=== PATIENT | female | born 1935 | race Caucasian/White ===

== ENCOUNTER 2021-03-12 10:44 | Emergency (ER) | payer MEDICARE, BC ==
[2021-03-12] MEDS ORDERED: Sodium Chloride 0.9% 1,000 ML IV STA (11:12)
[2021-03-12] MEDS ORDERED: Sodium Chloride 0.9% 1,000 ML IV ONE (11:12)
[2021-03-12] MEDS ORDERED: Ondansetron 4 MG/2 ML SDV IVPUSH ONE (11:12)
--- NOTE | 2021-03-12 11:46 | EDM.PDOC ---
ED HPI GENERAL MEDICAL PROBLEM - General Chief Complaint: General Stated Complaint: MARTIN AMB Time Seen by Provider: 03/12/21 10:59 Source of Information: Reports: Patient, EMS History Limitations: Reports: No Limitations - History of Present Illness INITIAL COMMENTS - FREE TEXT/NARRATIVE: The patient presents by [facility] for syncope. She has a history of uterine cancer post surgery on chemo. She had chemo on Saturday. Her oncologist is Dr Ramirez. She has been having diarrhea and nausea. She has been having some dry heaves and nothing coming up. She has no fever, chills, cough, chest pain, shortness of breath or abdominal pain. She got up to use the phone this morning and the next thing she knows she is on the floor. She did not hit her had and she had no LOC. She has no headache or chest pain. She has been getting diarrhea from the chemo lately. She does not have much of an appetite. Onset: Sudden Duration: Minutes: Severity: Moderate Improves with: Reports: None Worsens with: Reports: None Associated Symptoms: Reports: Nausea/Vomiting. Denies: Chest Pain, Cough, Fever/Chills, Headaches, Shortness of Breath - Related Data Allergies Allergy/AdvReac Type Severity Reaction Status Date / Time Penicillins Allergy Severe Swelling Verified 03/12/21 10:51 Home Meds: Home Meds Fenofibrate Nanocrystallized [Fenofibrate] 48 mg PO DAILY 03/12/21 [History] Ondansetron [Zofran ODT] 8 mg PO ASDIRECTED PRN 03/12/21 [History] Prochlorperazine [Compazine] 10 mg PO Q6H PRN 03/12/21 [History] Warfarin Sodium 5 mg PO ASDIRECTED 03/12/21 [History] lisinopriL [Lisinopril] 10 mg PO DAILY 03/12/21 [History] Past Medical History HEENT History: Reports: Impaired Vision Cardiovascular History: Reports: Afib Social & Family History - Tobacco Use Tobacco Use Status *Q: Never Tobacco User ED ROS GENERAL - Review of Systems Review Of Systems: See Below Constitutional: Reports: Malaise, Weakness, Fatigue. Denies: Fever, Chills HEENT: Reports: No Symptoms Respiratory: Reports: No Symptoms Cardiovascular: Reports: Syncope. Denies: Chest Pain Endocrine: Reports: No Symptoms GI/Abdominal: Reports: Diarrhea, Nausea, Vomiting. Denies: Abdominal Pain : Reports: No Symptoms Musculoskeletal: Reports: No Symptoms ED EXAM, GENERAL - Physical Exam Exam: See Below Exam Limited By: No Limitations General Appearance: Alert, No Apparent Distress Ears: Normal External Exam Nose: Normal Inspection Head: Atraumatic, Normocephalic Neck: Normal Inspection Respiratory/Chest: No Respiratory Distress, Lungs Clear, Normal Breath Sounds Cardiovascular: Regular Rate, Rhythm, No Edema, No Murmur GI/Abdominal: Soft, Non-Tender, No Organomegaly, No Mass Back Exam: Normal Inspection Extremities: Normal Inspection #1 Interpretation EKG Date: 03/12/21 Time: 11:46 Rhythm: Other (sinus tachycardia) Rate (Beats/Min): 123 Bonnie: Normal P-Wave: Present QRS: Normal ST-T: Normal QT: Normal EKG Interpretation Comments: PVCs and PACs Course - Vital Signs Last Recorded V/S: Last Vital Signs Temp 97.9 F 03/12/21 10:45 Pulse 94 03/12/21 10:45 Resp 18 03/12/21 10:45 BP 111/73 03/12/21 10:45 Pulse Ox 97 03/12/21 10:45 - Orders/Labs/Meds Orders: Active Orders 24 hr Category Date Time Status Implanted Port Access [RC] ONETIME Care 03/12/21 11:11 Active STOOL CULTURE/SHIGA TOXIN [MREF] Stat Lab 03/12/21 14:35 Received Sodium Chloride 0.9% [Normal Saline] 1,000 ml Med 03/12/21 15:30 Active IV ASDIRECTED ED Antiemetic Medication Reflex [OM.PC] Stat Oth 03/12/21 11:12 Ordered Medication Orders Sodium Chloride (Normal Saline) 1,000 mls @ 100 mls/hr IV ASDIRECTED [facility] Last Admin: 03/12/21 15:32 Dose: 100 mls/hr Documented by: LAZARO Labs: Laboratory Tests 03/12/21 03/12/21 03/12/21 Range/Units 11:25 11:25 11:35 WBC 2.24 L* (3.98-10.04) K/mm3 RBC 2.37 L (3.98-5.22) M/mm3 Hgb 8.0 L (11.2-15.7) gm/dl Hct 24.0 L (34.1-44.9) % MCV 101.3 H (79.4-94.8) fl MCH 33.8 H (25.6-32.2) pg MCHC 33.3 (32.2-35.5) g/dl RDW Std Deviation 59.4 H (36.4-46.3) fL Plt Count 242 (182-369) K/mm3 MPV 10.2 (9.4-12.3) fl Neut % (Auto) 68.7 (34.0-71.1) % Lymph % (Auto) 19.2 L (19.3-51.7) % [place] % (Auto) 12.1 (4.7-12.5) % Eos % (Auto) 0 L (0.7-5.8) Baso % (Auto) 0.0 L (0.1-1.2) % Neut # (Auto) 1.54 L (1.56-6.13) K/mm3 Lymph # (Auto) 0.43 L (1.18-3.74) K/mm3 [place] # (Auto) 0.27 (0.24-0.36) K/mm3 Eos # (Auto) 0.00 L (0.04-0.36) K/mm3 Baso # (Auto) 0.00 L (0.01-0.08) K/mm3 Sodium 135 L (136-145) mEq/L Potassium 3.4 L (3.5-5.1) mEq/L Chloride 100 (98-107) mEq/L Carbon Dioxide 27 (21-32) mEq/L Anion Gap 11.4 (5-15) BUN 25 H (7-18) mg/dL Creatinine 0.8 (0.55-1.02) mg/dL Est Cr Clr Drug Dosing 37.60 mL/min Estimated GFR (MDRD) > 60 (>60) mL/min BUN/Creatinine Ratio 31.3 H (14-18) Glucose 130 H (70-99) mg/dL Calcium 8.6 (8.5-10.1) mg/dL Magnesium 1.2 L (1.8-2.4) mg/dL Total Bilirubin 0.8 (0.2-1.0) mg/dL AST 15 (15-37) U/L ALT 19 (14-59) U/L Alkaline Phosphatase 55 (46-116) U/L Troponin I < 0.017 (0.00-0.056) ng/mL Total Protein 5.6 L (6.4-8.2) g/dl Albumin 3.0 L (3.4-5.0) g/dl Globulin 2.6 gm/dL Albumin/Globulin Ratio 1.2 (1-2) Urine Color (Yellow) Urine Appearance (Clear) Urine pH (5.0-8.0) Ur Specific [place] (1.005-1.030) Urine Protein (Negative) Urine Glucose (UA) (Negative) Urine Ketones (Negative) Urine Occult Blood (Negative) Urine Nitrite (Negative) Urine Bilirubin (Negative) Urine Urobilinogen (0.2-1.0) Ur Leukocyte Esterase (Negative) U Hyaline Cast (Auto) (0-5) /lpf Urine RBC (0-5) /hpf Urine WBC (0-5) /hpf Ur Epithelial Cells (0-5) /hpf Urine Bacteria (FEW) /hpf Urine Mucus (FEW) /hpf C.difficile [id number] C. difficile Tox (PCR) SARS-CoV-2 RNA (JOHN) Negative (NEGATIVE) 03/12/21 03/12/21 Range/Units 14:10 14:35 WBC (3.98-10.04) K/mm3 RBC (3.98-5.22) M/mm3 Hgb (11.2-15.7) gm/dl Hct (34.1-44.9) % MCV (79.4-94.8) fl MCH (25.6-32.2) pg MCHC (32.2-35.5) g/dl RDW Std Deviation (36.4-46.3) fL Plt Count (182-369) K/mm3 MPV (9.4-12.3) fl Neut % (Auto) (34.0-71.1) % Lymph % (Auto) (19.3-51.7) % [place] % (Auto) (4.7-12.5) % Eos % (Auto) (0.7-5.8) Baso % (Auto) (0.1-1.2) % Neut # (Auto) (1.56-6.13) K/mm3 Lymph # (Auto) (1.18-3.74) K/mm3 [place] # (Auto) (0.24-0.36) K/mm3 Eos # (Auto) (0.04-0.36) K/mm3 Baso # (Auto) (0.01-0.08) K/mm3 Sodium (136-145) mEq/L Potassium (3.5-5.1) mEq/L Chloride (98-107) mEq/L Carbon Dioxide (21-32) mEq/L Anion Gap (5-15) BUN (7-18) mg/dL Creatinine (0.55-1.02) mg/dL Est Cr Clr Drug Dosing mL/min Estimated GFR (MDRD) (>60) mL/min BUN/Creatinine Ratio (14-18) Glucose (70-99) mg/dL Calcium (8.5-10.1) mg/dL Magnesium (1.8-2.4) mg/dL Total Bilirubin (0.2-1.0) mg/dL AST (15-37) U/L ALT (14-59) U/L Alkaline Phosphatase (46-116) U/L Troponin I (0.00-0.056) ng/mL Total Protein (6.4-8.2) g/dl Albumin (3.4-5.0) g/dl Globulin gm/dL Albumin/Globulin Ratio (1-2) Urine Color Yellow (Yellow) Urine Appearance Clear (Clear) Urine pH 5.0 (5.0-8.0) Ur Specific [place] > or = 1.030 (1.005-1.030) Urine Protein Negative (Negative) Urine Glucose (UA) Negative (Negative) Urine Ketones Negative (Negative) Urine Occult Blood Trace-lysed H (Negative) Urine Nitrite Negative (Negative) Urine Bilirubin Negative (Negative) Urine Urobilinogen 0.2 (0.2-1.0) Ur Leukocyte Esterase Negative (Negative) U Hyaline Cast (Auto) 0-5 (0-5) /lpf Urine RBC 0-5 (0-5) /hpf Urine WBC 0-5 (0-5) /hpf Ur Epithelial Cells 0-5 (0-5) /hpf Urine Bacteria Moderate H (FEW) /hpf Urine Mucus Many H (FEW) /hpf C.difficile [id number] Presumptive negative C. difficile Tox (PCR) Negative SARS-CoV-2 RNA (JOHN) (NEGATIVE) Meds: Medications Generic Name Dose Route Start Last Admin Trade Name Freq PRN Reason Stop Dose Admin Sodium Chloride 1,000 mls @ 100 mls/hr 03/12/21 15:30 03/12/21 15:32 Normal Saline IV 100 mls/hr ASDIRECTED CHITO Administration Discontinued Medications Generic Name Dose Route Start Last Admin Trade Name Freq PRN Reason Stop Dose Admin Sodium Chloride 1,000 mls @ 1,000 mls/hr 03/12/21 11:12 03/12/21 11:47 Normal Saline IV 03/12/21 12:11 1,000 mls/hr .BOLUS STA Administration Sodium Chloride 1,000 mls @ 1,000 mls/hr 03/12/21 11:12 03/12/21 11:47 Normal Saline IV 03/12/21 12:11 1,000 mls/hr ONETIME ONE Administration Loperamide HCl 4 mg 03/12/21 14:44 03/12/21 15:02 Loperamide 2 Mg Cap PO 03/12/21 14:45 4 mg ONETIME ONE Administration Ondansetron HCl 4 mg 03/12/21 11:12 03/12/21 11:47 Ondansetron 4 Mg/2 Ml Sdv IVPUSH 03/12/21 11:13 4 mg ONETIME ONE Administration - Re-Assessments/Exams Free Text/Narrative Re-Assessment/Exam: 03/12/21 11:48 I had my nurse access her port, IV NS 1L bolus, zofran 4mg IV, EKG, labs, UA and COVID. 03/12/21 16:17 Her EKG shows a NSR with no acute changes. Her WBC is low at 2.24. Her Hgb is low at 8. Her Na was low at 135. Her K was lowa t 3.4. Her glucose was elevated at 130. Her troponin is negative. Her UA shows no UTI. She is COVID negative. I was able to get a stool sample and it was negative for C-dif. She did not feel much better after the fluids. I did give her liperamide. She still did not feel better. I feel she needs to be admitted. There no beds here or in [place]. I called [facility] in [place] and talked with Dr Arenas and he accepted the patient. Departure - Departure Time of Disposition: 16:20 Disposition: DC/[facility]fer to [facility] Condition: Fair Clinical Impression: Generalized weakness Uterine cancer Qualifiers: Malignant neoplasm of uterus location: unspecified site of uterus Qualified Code(s): C55 - Malignant neoplasm of uterus, part unspecified Chemotherapy adverse reaction Qualifiers: Encounter type: initial encounter Qualified Code(s): T45.1X5A - Adverse effect of antineoplastic and immunosuppressive drugs, initial encounter Anemia Qualifiers: Anemia type: other cause Other causes of anemia: other cause, not classified Qualified Code(s): D64.89 - Other specified anemias Leukopenia Qualifiers: Leukopenia type: other Qualified Code(s): D72.818 - Other decreased white blood cell count Diarrhea Qualifiers: Diarrhea type: unspecified type Qualified Code(s): R19.7 - Diarrhea, unspecified - Discharge Information Forms: ED Department Discharge Sepsis Event Note (ED) - Focused Exam Vital Signs: Vital Signs Temp Pulse Resp BP Pulse Ox 03/12/21 10:45 97.9 F 94 18 111/73 97 - My Orders Last 24 Hours: My Active Orders 03/12/21 11:11 Implanted Port Access [RC] ONETIME 03/12/21 11:12 ED Antiemetic Medication Reflex [OM.PC] Stat 03/12/21 14:35 STOOL CULTURE/SHIGA TOXIN [MREF] Stat 03/12/21 15:30 Sodium Chloride 0.9% [Normal Saline] 1,000 ml IV ASDIRECTED - Assessment/Plan Last 24 Hours: My Active Orders 03/12/21 11:11 Implanted Port Access [RC] ONETIME 03/12/21 11:12 ED Antiemetic Medication Reflex [OM.PC] Stat 03/12/21 14:35 STOOL CULTURE/SHIGA TOXIN [MREF] Stat 03/12/21 15:30 Sodium Chloride 0.9% [Normal Saline] 1,000 ml IV ASDIRECTED
[2021-03-12] MEDS ORDERED: Loperamide 2 MG Cap PO ONE (14:44)
[2021-03-12] MEDS ORDERED: Sodium Chloride 0.9% 1,000 ML IV SCH (15:30)
== END 2021-03-12 16:24 ==
LOC: JD.ED 10:44
DX: R19.7 Diarrhea, unspecified (principal); T45.1X5A Adverse effect of antineoplastic and immunosuppressive drugs, initial encounter; C55 Malignant neoplasm of uterus, part unspecified; D64.89 Other specified anemias; D72.818 Other decreased white blood cell count; I48.91 Unspecified atrial fibrillation; R00.0 Tachycardia, unspecified; Z88.0 Allergy status to penicillin; Z79.899 Other long term (current) drug therapy; Z20.822 Contact with and (suspected) exposure to COVID-19
CPT/HCPCS: 36415; 80053; 81001; 83735; 84484; 85025; 87045; 87046; 87493; 87899; 93005; 96374; 99285; A9270; J2405; J7030; U0002